=== PATIENT | female | born 1995 | race Caucasian/White ===

== ENCOUNTER 2022-12-22 22:32 | Emergency (ER) | payer BC ==
[~2022-12-22] VITALS: Ht 160 cm; Wt 56.7 kg
--- NOTE | 2022-12-22 22:51 | NUR ---
Bibself c/o palpitation on aderall and had snacks with coffee few hours ago denies pain. PT A/OX4. TOLERATING R/A WELL WITH NO RESP DISTRESS. CONNECTED PT TO POX AND MONITOR. SAFETY MEASURES IN PLACE.
--- NOTE | 2022-12-22 23:16 | NUR ---
FACE WORKER AT PT'S BEDSIDE
[2022-12-23 00:02] LABS: BASOPHILS % (AUTO) 0.4 % (0.0-2.0); EOSINOPHILS % (AUTO) 0.6 % (0.0-6.0); HEMATOCRIT 40 % (33-45); HEMOGLOBIN 13.4 g/dL (11.5-14.8); LYMPHOCYTES # (AUTO) 2.2 K/uL (0.8-4.8); LYMPHOCYTES % (AUTO) 18.5 % (20.0-44.0); MEAN CORPUSCULAR HGB CONC 33 g/dl (31.0-36.0); MEAN CORPUSCULAR VOLUME 87 fL (82-100); MONOCYTES # (AUTO) 0.7 K/uL (0.1-1.30); NEUTROPHILS % (AUTO) 74.5 % (43.0-81.0); PLATELET COUNT (AUTO) 339 K/uL (150-450); RED BLOOD CELL COUNT(AUTO) 4.64 MIL/uL (4.0-5.2); WHITE BLOOD COUNT (AUTO) 12.1 K/uL (4.3-11.0)
[2022-12-23 00:10] LABS: CALCIUM, SERUM 9.6 mg/dL (8.5-10.1); CARBON DIOXIDE 21 mmol/L (21-32); CHLORIDE 102 mmol/L (98-107); CREATININE 0.7 mg/dL (0.6-1.3); GLUCOSE 101 mg/dL (74-106); POTASSIUM 3.5 mmol/L (3.5-5.1); SODIUM SERUM 133 mmol/L (136-145); UREA NITROGEN, BLOOD 11 mg/dL (7-18)
--- NOTE | 2022-12-23 00:42 | NUR ---
Patient discharged to home in stable condition. Written and verbal after care instructions given. Patient verbalizes understanding of instruction.
[2022-12-23 00:48] VITALS: BP 120/66
== END 2022-12-23 00:48 | disposition home or self-care (01) ==
LOC: ER 22:43
DX: R00.2 Palpitations (principal); J45.909 Unspecified asthma, uncomplicated; F90.9 Attention-deficit hyperactivity disorder, unspecified type; Z88.0 Allergy status to penicillin
CPT/HCPCS: 36415; 80048-TC; 84484-TC; 85025-TC